=== PATIENT | female | born 1980 | race American Indian/Alaskan Native ===

== ENCOUNTER 2016-08-31 14:24 | Emergency (ER) | payer SELFPAY ==
[2016-08-31 15:07] VITALS: BP 153/110
[2016-08-31 15:46] LABS: Bilirubin,Urine NEG (Negative); Blood,Urine NEG (Negative); Ketones,Urine NEG (Negative); Leukocyte Esterase,Urine NEG (Negative); Mucus,Urine 1+ /HPF; Nitrite,Urine NEG (Negative); Urobilinogen,Urine < 2.0 mg/dL (<2.0)
--- NOTE | 2016-08-31 17:15 | Emergency Department Report ---
ED Female HPI - General Chief complaint: Urogenital-Female Stated complaint: ABDOMINAL PAIN Source: patient Mode of arrival: Ambulatory Limitations: No Limitations - History of Present Illness Initial comments: 35-year-old female past medical history hypertension presents with complaint of one-week of whitish vaginal discharge denies any pelvic pain , mild dysuria no nausea no vomiting. Flank pain. Slight whitish thickish discharge from vagina. Denies any fever or chills chest pain or rigor's. Patient is awake alert and oriented 3 nontoxic appearing. States she used Monistat with no resolution of her symptoms. MD Complaint: vaginal discharge Onset/Timin -: week(s) Location: labia Consistency: constant Improves with: none Worsens with: urination Are you Now?: No Associated Symptoms: vaginal discharge - Related Data Sexually active: Yes Previous Rx's Medication Instructions Recorded Last Taken Type amLODIPine [Norvasc] 5 mg PO DAILY #30 tab 05/24/16 Unknown Rx Ibuprofen [Motrin] 400 mg PO Q8H PRN #20 tablet 08/31/16 Unknown Rx Nitrofurantoin [place]/M-Cryst 100 mg PO Q12HR #14 capsule 08/31/16 Unknown Rx [Macrobid CAP] amLODIPine [Norvasc] 5 mg PO DAILY #30 tab 08/31/16 Unknown Rx metroNIDAZOLE [Flagyl TAB] 500 mg PO Q12HR #14 tab 08/31/16 Unknown Rx Allergies Allergy/AdvReac Type Severity Reaction Status Date / Time No Known Allergies Allergy Verified 08/31/16 15:02 ED Review of Systems ROS: Stated complaint: ABDOMINAL PAIN Other details as noted in HPI Constitutional: denies: chills, fever Eyes: denies: eye pain, eye discharge, vision change ENT: denies: ear pain, throat pain Respiratory: denies: cough, shortness of breath, wheezing Cardiovascular: denies: chest pain, palpitations Endocrine: no symptoms reported Gastrointestinal: denies: abdominal pain, nausea, diarrhea Genitourinary: discharge. denies: urgency, dysuria Musculoskeletal: denies: back pain, joint swelling, arthralgia Skin: denies: rash, lesions Neurological: denies: headache, weakness, paresthesias Psychiatric: denies: anxiety, depression Hematological/Lymphatic: denies: easy bleeding, easy bruising ED Past Medical Hx - Past Medical History Hx Hypertension: Yes - Surgical History Additional Surgical History: tubal ligation - Social History Smoking Status: Former Smoker Substance Use Type: Alcohol - Medications Home Medications: Home Medications Medication Instructions Recorded Confirmed Last Taken Type amLODIPine [Norvasc] 5 mg PO DAILY #30 tab 05/24/16 08/31/16 Unknown Rx Ibuprofen [Motrin] 400 mg PO Q8H PRN #20 tablet 08/31/16 Unknown Rx Nitrofurantoin [place]/M-Cryst 100 mg PO Q12HR #14 capsule 08/31/16 Unknown Rx [Macrobid CAP] amLODIPine [Norvasc] 5 mg PO DAILY #30 tab 08/31/16 Unknown Rx metroNIDAZOLE [Flagyl TAB] 500 mg PO Q12HR #14 tab 08/31/16 Unknown Rx ED Physical Exam - General Limitations: No Limitations General appearance: alert, in no apparent distress - Head Head exam: Present: atraumatic, normocephalic - Eye Eye exam: Present: normal appearance, PERRL, EOMI - ENT ENT exam: Present: mucous membranes moist - Neck Neck exam: Present: normal inspection - Respiratory Respiratory exam: Present: normal lung sounds bilaterally. Absent: respiratory distress - Cardiovascular Cardiovascular Exam: Present: regular rate, normal rhythm. Absent: systolic murmur, diastolic murmur, rubs, gallop - GI/Abdominal GI/Abdominal exam: Present: soft, normal bowel sounds - External exam: Present: normal external exam Speculum exam: Present: vaginal discharge (thick white vaginal discharge) Bi-manual exam: Present: normal bi-manual exam - Extremities Exam Extremities exam: Present: normal inspection, full ROM, normal capillary refill - Back Exam Back exam: Present: normal inspection - Neurological Exam Neurological exam: Present: alert, oriented X3, CN II-XII intact, normal gait - Psychiatric Psychiatric exam: Present: normal affect, normal mood - Skin Skin exam: Present: warm, dry, intact, normal color. Absent: rash ED Course Vital Signs 08/31/16 15:04 Temperature 98.8 F Pulse Rate 78 Respiratory 19 Rate Blood Pressure 153/110 O2 Sat by Pulse 100 Oximetry ED Medical Decision Making - Medical Decision Making A/P: Bacterial vaginosis, cystitis 1-chlamydia and gonorrhea tests sent, we'll treat empirically with metronidazole and Macrobid for cystitis and bacterial vaginosis. No clinical signs of PID on exam no cervical motion tenderness no adnexal tenderness. I advised patient to follow up results of Chlamydia gonorrhea test within 3-4 days. She understood these instructions. I advised her to return if she has any severe pelvic pain nausea vomiting fever chills and inability to tolerate by mouth 2-follow-up with primary care and DATA ENTRY COORDINATOR 3-Motrin when necessary Critical care attestation.: If time is entered above; I have spent that time in minutes in the direct care of this critically ill patient, excluding procedure time. ED Disposition Clinical Impression: Bacterial vaginosis, Cystitis Disposition: DISCHARGED TO HOME OR SELFCARE Is pt being admited?: No Does the pt Need Aspirin: No Condition: Stable Instructions: Bacterial Vaginosis (ED), Urinary Tract Infection in Women (ED) Prescriptions: amLODIPine [Norvasc] 5 mg PO DAILY #30 tab Ibuprofen [Motrin] 400 mg PO Q8H PRN #20 tablet PRN Reason: Pain metroNIDAZOLE [Flagyl TAB] 500 mg PO Q12HR #14 tab Nitrofurantoin [place]/M-Cryst [Macrobid CAP] 100 mg PO Q12HR #14 capsule Referrals: KARLI SAINI MD [Staff Physician] - 3-5 Days MICAH OLEARY MD [Staff Physician] - 3-5 Days Forms: STI Treatment and Prevention, Work/School Release Form(ED) Time of Disposition: 18:00
== END 2016-08-31 18:09 | disposition home or self-care (01) ==
LOC: ED 14:24
DX: N30.90 Cystitis, unspecified without hematuria (principal); N76.0 Acute vaginitis; I10 Essential (primary) hypertension; Z87.891 Personal history of nicotine dependence; Z98.51 Tubal ligation status
CPT/HCPCS: 81001; 81025; 87086; 87210; 87591; 99283

== ENCOUNTER 2021-05-13 18:27 | Emergency (ER) | payer SELFPAY ==
[2021-05-13] MEDS ORDERED: SODIUM CHLORIDE 0.9% 500 ML 500 ML IV ONE ×2 (18:32→21:47)
[2021-05-13] MEDS ORDERED: IBUPROFEN 800 MG TAB ONE (18:34)
[2021-05-13] MEDS ORDERED: IBUPROFEN 800 MG TAB PO ONE (18:37)
[2021-05-13 19:18] LABS: Alanine Aminotransferase 13 units/L (7-56); Albumin 3.9 g/dL (3.9-5); Blood Urea Nitrogen 9 mg/dL (7-17); Calcium 8.9 mg/dL (8.4-10.2); Hemolysis Index 0
[2021-05-13 19:20] LABS: BUN/Creatinine Ratio 15
--- NOTE | 2021-05-13 19:25 | XRay Report ---
CHEST 1 VIEW 05/13/2021 7:15 PM INDICATION / CLINICAL INFORMATION: possible Sepsis. COMPARISON: None available. FINDINGS: SUPPORT DEVICES: None. HEART / MEDIASTINUM: No significant abnormality. LUNGS / PLEURA: No significant pulmonary or pleural abnormality. No pneumothorax. ADDITIONAL FINDINGS: No significant additional findings. IMPRESSION: 1. No acute findings. Signer Name: Leland Chino MD Signed: 05/13/2021 7:21 PM Workstation Name: [id number]
[2021-05-13 19:27] LABS: Mean Corpuscular HGB Conc 30 % (30-34); Mean Corpuscular Volume 71 fl (79-97); Platelet Count 352 K/mm3 (140-440)
[2021-05-13 19:28] LABS: Hematocrit 31.2 % (30.3-42.9); Hemoglobin 9.2 gm/dl (10.1-14.3)
[2021-05-13 19:29] LABS: Red Cell Distribution Width 21.1 % (13.2-15.2)
[2021-05-13 19:40] LABS: INR 0.95 (0.87-1.13)
[2021-05-13 20:12] LABS: Anisocytosis 1+; Total Cells Counted 100
[2021-05-13 20:13] LABS: Hypochromasia 2+; Schistocytes Few
[2021-05-13] MEDS ORDERED: SODIUM CHLORIDE 0.9% 1000 ML 1,000 ML ONE (20:15)
[2021-05-13] MEDS ORDERED: KETOROLAC 30 MG/1 ML INJ ONE (21:23)
[2021-05-13] MEDS ORDERED: ACETAMINOPHEN 325 MG TAB PO ONE (21:30)
[2021-05-13] MEDS ORDERED: KETOROLAC 30 MG/1 ML INJ IV ONE (21:30)
[2021-05-13] MEDS ORDERED: SODIUM CHLORIDE 0.9% 1000 ML 1,000 ML IV ONE (21:47)
--- NOTE | 2021-05-13 21:47 | Emergency Department Report ---
ED Fever HPI - General Chief Complaint: Fever Stated Complaint: cough Source: patient Exam Limitations: no limitations - History of Present Illness Initial Comments: Patient is a 40-year-old female here with complaint of fever. Patient states that she has had symptoms over the past 2 weeks. The other symptoms that she has had include sore throat, fever, body aches. She is also had cough productive of mucus. She states she was not tested for COVID-19. She has not been vaccinated. Timing/Duration: week ED Review of Systems ROS: Stated complaint: cough Other details as noted in HPI Constitutional: chills, fever Eyes: denies: eye pain ENT: throat pain Respiratory: no symptoms reported Cardiovascular: as per HPI Endocrine: no symptoms reported Gastrointestinal: as per HPI Genitourinary: denies: urgency, dysuria Musculoskeletal: denies: back pain Skin: denies: rash Neurological: denies: headache, weakness Psychiatric: denies: anxiety, depression Hematological/Lymphatic: denies: easy bleeding ED Past Medical Hx - Past Medical History Previous Medical History?: Yes Hx Hypertension: Yes - Surgical History Additional Surgical History: tubal ligation - Social History Smoking Status: Unknown if ever smoked - Medications Home Medications: Home Medications Medication Instructions Recorded Confirmed Last Taken Type amLODIPine 5 mg PO DAILY #30 tab 16 08/31/16 Unknown Rx Ibuprofen [Motrin] 400 mg PO Q8H PRN #20 tablet 08/31/16 Unknown Rx Nitrofurantoin [place]/M-Cryst 100 mg PO Q12HR #14 capsule 08/31/16 Unknown Rx [Macrobid CAP] amLODIPine [Norvasc] 5 mg PO DAILY #30 tab 08/31/16 Unknown Rx metroNIDAZOLE [Flagyl TAB] 500 mg PO Q12HR #14 tab 08/31/16 Unknown Rx amLODIPine [Norvasc] 5 mg PO DAILY #30 tab 04/28/18 Unknown Rx hydroCHLOROthiazide [HCTZ] 25 mg PO QDAY #30 tablet 04/28/18 Unknown Rx ED Physical Exam - General Limitations: No Limitations General appearance: alert, in no apparent distress - Head Head exam: Present: atraumatic, normocephalic - Eye Eye exam: Present: normal appearance - ENT ENT exam: Present: mucous membranes moist - Neck Neck exam: Present: normal inspection - Respiratory Respiratory exam: Present: normal lung sounds bilaterally. Absent: respiratory distress - Cardiovascular Cardiovascular Exam: Present: tachycardia - GI/Abdominal GI/Abdominal exam: Present: soft, normal bowel sounds - Rectal Rectal exam: Present: deferred - Extremities Exam Extremities exam: Present: normal inspection - Back Exam Back exam: Present: normal inspection - Neurological Exam Neurological exam: Present: alert, oriented X3 - Psychiatric Psychiatric exam: Present: normal affect - Skin Skin exam: Present: warm, dry, intact, normal color. Absent: rash ED Course Vital Signs 05/13/21 05/13/21 05/13/21 20:50 20:53 21:05 Temperature 100.3 F H Pulse Rate 102 H 99 H Respiratory 18 16 17 Rate Blood Pressure 132/82 116/78 [Right] O2 Sat by Pulse 99 99 99 Oximetry 05/13/21 05/14/21 05/14/21 23:00 00:26 01:38 Temperature 98.9 F 98.9 F 98.2 F Pulse Rate 80 80 Respiratory 18 18 18 Rate Blood Pressure 122/79 126/77 [Right] O2 Sat by Pulse 98 98 98 Oximetry - Reevaluation(s) Reevaluation #1: Labs are notable for normal lactic acid, normal white blood cell count. Urinalysis shows no evidence of infection. Patient's chest x-ray shows no evidence of pneumonia. This time I do think that patient likely has a viral infection and given that she is not sepsis, has no evidence of hypoxia even on ambulation is at least 98% on room air. We will plan for patient to have outpatient COVID-19 testing as we unfortunately do not offer testing for patients overnight admitted. Patient is to follow-up with primary care as needed or return to the emergency department for any her symptoms worsen. ED Medical Decision Making - Lab Data Result diagrams: 05/13/21 18:43 05/13/21 18:43 - EKG Data -: EKG Interpreted by Me Rate: tachycardia - Radiology Data Radiology results: report reviewed, image reviewed - Medical Decision Making 40 yo F with complaint of fever. Plan to evaluate with sepsis work-up although patient likely with viral illness. Will give IV fluid bolus, obtain blood cultures and lactic acid. Chest x-ray, urinalysis are ordered. Flu testing is also ordered as well as strep however Covid testing unable to be obtained. Will monitor on pulse ox and cardiac monitoring. Critical care attestation.: If time is entered above; I have spent that time in minutes in the direct care of this critically ill patient, excluding procedure time. ED Disposition Clinical Impression: Viral illness Disposition: 01 HOME / SELF CARE / HOMELESS Is pt being admited?: No Does the pt Need Aspirin: No Condition: Stable Instructions: Viral Respiratory Infection, [id number] Additional Instructions: Your labs today show mild dehydration and you are given 2 L of IV fluids. You also had negative flu and strep testing. Your chest x-ray was normal with no pneumonia. Your urinalysis did not show any evidence of UTI. Given this he likely have a viral illness. You should quarantine away from others until you have a negative Covid test. If any of your symptoms worsen feel free to come back and be reevaluated. Referrals: GAYE JOEL MD [Primary Care Provider] - 3-5 Days Forms: Work/School Release Form(ED) Time of Disposition: 01:22
[2021-05-14 01:08] LABS: Bilirubin,Urine NEG (Negative); Blood,Urine NEG (Negative); Color,Urine Yellow (Yellow); Mucus,Urine 2+ /HPF; Urobilinogen,Urine < 2.0 mg/dL (<2.0)
[2021-05-14 01:38] VITALS: BP 126/77
--- NOTE | 2021-05-14 12:53 | Electrocardiograph Report ---
[facility] Test Date: 2021-05-13 Test Time: 20:44:28 Pat Name: ASHA POWELL Department: Room: Gender: F Pals Specialist: BRENDEN : 1980 Requested By: VONDA RENEE Order Number: [id number] Reading MD: Lane Mcdonough Measurements Intervals [place] Rate: 100 P: 62 NC: 177 QRS: 85 QRSD: 96 T: 55 QT: 357 QTc: 459 Interpretive Statements Sinus tachycardia No previous ECG available for comparison Electronically Signed On 05-14-2021 12:52:[address]onough
== END 2021-05-14 01:39 | disposition home or self-care (01) ==
LOC: ED 18:27
DX: B34.9 Viral infection, unspecified (principal); R50.9 Fever, unspecified; R05.9 Cough, unspecified; R79.1 Abnormal coagulation profile; I10 Essential (primary) hypertension; Z98.51 Tubal ligation status; Z79.899 Other long term (current) drug therapy
CPT/HCPCS: 36415; 71045; 80053; 81001; 82140; 82805; 85007; 85025; 85610; 87040; 87116; 87400; 87430; 93005; 96361; 96374; 99284; J1885; J7030; J7040; Q0162